=== PATIENT | female | born 1940 | race Caucasian/White ===

== ENCOUNTER 2024-11-18 08:39 | Outpatient (CLI) | payer MEDICARE | END 2024-11-18 08:40 | disposition home or self-care (01) | LOC: CSHSLEEP 08:39 | PROVIDERS: ATTEND Family Medicine | DX: G47.33 Obstructive sleep apnea (adult) (pediatric) (principal); R53.83 Other fatigue; R51.9 Headache, unspecified; F41.9 Anxiety disorder, unspecified; Z68.25 Body mass index [BMI] 25.0-25.9, adult; E66.9 Obesity, unspecified; R06.83 Snoring; G47.00 Insomnia, unspecified; I11.9 Hypertensive heart disease without heart failure | CPT/HCPCS: 95800 ==